=== PATIENT | male | born 1960 | race Two or more races ===

== ENCOUNTER → 2020-02-01 10:42 | Outpatient (BNVA) | payer OTHER, SELFPAY | PROVIDERS: PCP Physician Assistant; Visit Provider Hospitalist | DX: G47.33 Obstructive sleep apnea (adult) (pediatric) (principal); J90 Pleural effusion, not elsewhere classified; Z99.89 Dependence on other enabling machines and devices; Z23 Encounter for immunization | CPT/HCPCS: 90686; 99214 ==